=== PATIENT | male | born 1950 | race Caucasian/White ===

== ENCOUNTER → 2020-01-12 09:15 | Outpatient (CLI) | payer MEDICARE, SELFPAY ==
[2020-01-12 10:37] LABS: PSA,Total - Annual Screen 1.17 ng/mL (0.00-4.00)
== END ==
PROVIDERS: PCP Family Medicine; Referring Provider Urology; Visit Provider Urology
DX: Z12.5 Encounter for screening for malignant neoplasm of prostate (principal)
CPT/HCPCS: 36415; 84153; G0103

== ENCOUNTER → 2022-03-06 | Outpatient (CLI) | payer MEDICARE, SELFPAY ==
[2022-03-06 12:35] LABS: PSA,Total - Annual Screen 1.26 ng/mL (0.00-4.00)
== END | disposition home or self-care (01) ==
LOC: LAB 10:58
PROVIDERS: PCP Family Medicine; Referring Provider Registered Nurse; Visit Provider Registered Nurse
DX: Z12.5 Encounter for screening for malignant neoplasm of prostate (principal)
CPT/HCPCS: 36415; 84153; G0103